=== PATIENT | female | born 1965 | race American Indian/Alaskan Native ===

== ENCOUNTER 2020-08-26 12:32 | Emergency (ER) | payer OTHER ==
[2020-08-26 13:59] VITALS: BP 159/92
[2020-08-26] MEDS ORDERED: ACETAMINOPHEN 500 MG TAB PO ONE (15:53)
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
== END 2020-08-26 17:26 | disposition home or self-care (01) ==
LOC: ED 12:32
DX: M54.5 Low back pain (principal); I10 Essential (primary) hypertension; E11.9 Type 2 diabetes mellitus without complications; Z98.890 Other specified postprocedural states; Z79.899 Other long term (current) drug therapy; V89.2XXA Person injured in unspecified motor-vehicle accident, traffic, initial encounter; Y93.89 Activity, other specified; Y92.488 Other paved roadways as the place of occurrence of the external cause; Y99.8 Other external cause status
CPT/HCPCS: 72100; 99283